=== PATIENT | male | born 2000 ===

== ENCOUNTER → 2024-11-08 | Outpatient (CLI) | payer BC ==
[2024-11-09 13:29] LABS: Campylobacter Sp Not Detected (NOT DETECT); E. Coli O157 Not Detected (NOT DETECT); Enteroaggregative E. coli-EAEC Not Detected (NOT DETECT); Enteropathogenic E. coli-EPEC Not Detected (NOT DETECT); Enterotoxigenic E. coli-ETEC Not Detected (NOT DETECT); Salmonella Sp Not Detected (NOT DETECT); Shiga Toxin-prod E. coli-STEC Not Detected (NOT DETECT); Shigella/Enteroin E. coli-EIEC Not Detected (NOT DETECT); Vibrio Sp Not Detected (NOT DETECT)
[2024-11-12 11:50] LABS: PANCREATIC ELASTASE,FECAL >800 ug/g (>=100)
[2024-11-12 11:58] LABS: CALPROTECTIN,FECAL <5 ug/g (<=49)
== END ==
LOC: LAB SHORT 15:30 → LAB 15:30
PROVIDERS: Physician Assistant
DX: K52.9 Noninfective gastroenteritis and colitis, unspecified (principal); R14.3 Flatulence
CPT/HCPCS: 82653; 83993; 87507